=== PATIENT | male | born 1975 | race African-American/Black ===

== ENCOUNTER 2017-11-05 10:25 | Day surgery (SDC) | payer OTHER ==
[2017-11-05] MEDS ORDERED: NA CHLORIDE 0.9% 500 ML ONE (10:59)
[2017-11-05] MEDS ORDERED: PHENYLEPHRINE 10% OPTH 5ML ONE (10:59)
[2017-11-05] MEDS ORDERED: CYCLOPENTOLATE 1% OPTH 2 ML ONE (11:00)
[2017-11-05] MEDS ORDERED: CYCLOPENTOLATE 1% OPTH 2 ML OPTH ONE ×2 (11:10→11:17)
[2017-11-05] MEDS ORDERED: PHENYLEPHRINE 10% OPTH 5ML OPTH ONE ×2 (11:10→11:17)
[2017-11-05] MEDS ORDERED: DUOVISC 1 KIT OPTH ONE (11:31)
[2017-11-05] MEDS ORDERED: NS 0.9% VIAL 10 ML ONE (11:31)
[2017-11-05] MEDS ORDERED: EPINEPHRINE/PF 1 MG/ML AMP ONE (11:31)
[2017-11-05] MEDS ORDERED: BALANCED SALT IRRIG PLAIN 500 ML BTL IRR ONE (11:31)
[2017-11-05] MEDS ORDERED: MOXIFLOXACIN HCL 10 DROPS/ML **OR USE OPTH ONE (11:32)
[2017-11-05] MEDS: TETRACAINE HCL 0.5% 2ML OPTH ONE ×2 (11:48→12:30)
[2017-11-05] MEDS: BUPIVACAINE 0.25% PF 10 ML VIAL ONE ×2 (11:48→12:31)
[2017-11-05] MEDS: LIDOCAINE 2% MPF 5 ML VIAL ONE ×2 (11:49→12:31)
[2017-11-05] MEDS ORDERED: PROPOFOL 200 MG/20 ML VIAL IV ONE (12:45)
[2017-11-05] MEDS ORDERED: MIDAZOLAM HCL 2 MG/2 ML INJ ONE (12:46)
[2017-11-05] MEDS ORDERED: LIDOCAINE 1% MPF 5 ML VIAL ONE (12:46)
[2017-11-05] MEDS ORDERED: FLUMAZENIL 0.1 MG/ML (5 mL VIAL) IV ONE (13:09)
--- NOTE | 2017-11-05 13:30 | P.BOP ---
Preoperative diagnosis: Anterior and posterior subcapsular cataracts OD Postoperative diagnosis: Same Primary procedure: Phacoemulsification with IOL OD Estimated blood loss: None Anesthesia: Local (Subtnon's infusion with anesthesia for cataract surgery) Complications: None Implants: ZCB00 +20.0 Transferred to: Other (Day surgery) Condition: Good
--- NOTE | 2017-11-05 23:36 | OP ---
Date of Procedure: 11/05/2017 Surgeon: Mikaela Isbell MD Anesthesiologist: 1. Rodolfo Vallejo CRNA. 2. Buddy Green M.D. Preoperative Diagnosis: Anterior and posterior subcapsular cataract, right eye. Operation Performed: Phacoemulsification with intraocular lens implant, right eye. Anesthesia: Per cataract surgery. Complications: None. Description Of Procedure: In day surgery, the patient was prepped with Betadine and draped. A conju nctival incision was made in the inferior nasal quadrant with Meme scissors. A sub-Tenon block c onsisting of a 1:1 mixture of 2% Xylocaine and 0.25% bupivacaine was placed through the conjunctival incision with a blunt cannula. A Honan balloon was placed over the eye and the patient was transferr ed to the operating room. In the operating room the patient was prepped and draped in the usual sterile fashion for ophthalmic surgery. A lid speculum was placed in the right eye. Two paracentesis sites were made superiorly an d inferiorly in the limbal cornea. Viscoat was placed in the anterior chamber and a crescent blade w as used to make a corneal groove and tunnel, and a keratome was used to enter the anterior chamber. Provisc was placed in the anterior chamber and a 360 degree capsulotomy was performed with a cystitom e. The lens was hydrodissected with BSS and rotated freely. The lens was removed with a stop and ch op technique. A 7.20 phaco CDE was used to remove the lens. Residual cortex was removed with the ir rigation and aspiration. Provisc was placed in the capsular bag. A ZCB00 +20.0 lens was placed in t he capsular bag without complications. Irrigation and aspiration was used to remove residual viscoel astic. The paracentesis sites were hydrated with BSS. The wound and paracentesis sites were inspect ed and found to be watertight. Vigamox 0.07 cc was placed intracamerally at the end of the procedure . The eye was irrigated with balanced salt solution. The eye was patched with a soft cotton patch a nd Douglas metal shield. The patient was returned to day surgery in good condition. Comments: Discharge Instructions: Mr. Rodriguez is discharged to home in good condition and is to follow up lety Isbell in the morning. SHADL/JOHAN Voice ID: [id number] Report ID: [id number]
== END 2017-11-05 14:12 | disposition home or self-care (01) ==
LOC: OR 10:25
PROVIDERS: ATTEND Ophthalmology Retina Specialist
PROC: 08RJ3JZ Replacement of Right Lens with Synthetic Substitute, Percutaneous Approach (ICD-10-PCS; principal; 2017-11-05 11:00)
DX: H25.031 Anterior subcapsular polar age-related cataract, right eye (principal); H25.041 Posterior subcapsular polar age-related cataract, right eye; H25.11 Age-related nuclear cataract, right eye; I10 Essential (primary) hypertension; Z88.6 Allergy status to analgesic agent; Z86.010 Personal history of colon polyps; Z83.511 Family history of glaucoma; Z82.49 Family history of ischemic heart disease and other diseases of the circulatory system; Z80.9 Family history of malignant neoplasm, unspecified
CPT/HCPCS: J0171; J2250

== ENCOUNTER 2019-02-16 19:19 | Emergency (ER) | payer OTHER ==
--- OUTSIDE RECORDS SUMMARY | 2019-02-16 19:21 | XMS REPORT ---
:1975 [facility] Address [address] [place] [address] Care Team Providers Name Role Phone Unavailable Unavailable Unavailable Payers Payer Name Policy Type Policy Number Effective Date Expiration Date Problems This patient has no known problems. Allergies, Adverse Reactions, Alerts Allergy Allergy Status Severity Reaction(s) Onset Inactive Treating Comments Name Type Date Date Clinician No Known DA Active U 2018-02 Allergies 00:00:0 0 codeine DA Active SV 2018-02 00:00:0 0 Medications This patient has no known medications.
[2019-02-16] MEDS ORDERED: IBUPROFEN 400 MG TAB ONE (20:07)
--- NOTE | 2019-02-16 20:39 | EDPHYS ---
Physician Documentation [facility] Name: Suhail Rodriguez Age: 43 yrs Sex: Male : 1975 Arrival Date: 02/16/2019 Time: 19:21 Bed 13 Private MD: ED Physician Julio Perdomo HPI: 02/16 20:16 This 43 yrs old Black Male presents to ER via Ambulatory with complaints of Flu kb Symptoms. 20:16 The patient or guardian reports cough, that is intermittent, described as mild, with no kb sputum, flu symptoms, low-grade fever, myalgias. Onset: The symptoms/episode began/occurred 2 day(s) ago. Severity of symptoms: At their worst the symptoms were moderate, in the emergency department the symptoms are unchanged. Modifying factors: The symptoms are alleviated by nothing, the symptoms are aggravated by nothing. Associated signs and symptoms: Pertinent positives: fever, rhinorrhea, sore throat. The patient has not experienced similar symptoms in the past. The patient has not recently seen a physician. Historical: - Allergies: 19:36 No Known Allergies; aj1 - Home Meds: 19:36 None [Active]; aj1 - PMHx: 19:36 Diverticulitis; Migraines; aj1 - Immunization history:: Flu vaccine is up to date. - Social history:: Smoking status: Patient/guardian denies using tobacco. - Ebola Screening: : Patient denies travel to an Ebola-affected area in the 21 days before illness onset. ROS: 20:15 Neck: Negative for injury, pain, and swelling, Cardiovascular: Negative for chest pain, kb palpitations, and edema, Abdomen/GI: Negative for abdominal pain, nausea, vomiting, diarrhea, and constipation, Back: Negative for injury and pain, : Negative for injury, bleeding, discharge, and swelling, MS/Extremity: Negative for injury and deformity, Skin: Negative for injury, rash, and discoloration. 20:15 Constitutional: Positive for body aches, chills, fatigue, fever, malaise. 20:15 ENT: Positive for rhinorrhea, sinus congestion, sore throat. 20:15 Respiratory: Positive for 20:15 Neuro: Positive for headache. Exam: 20:15 Constitutional: This is a well developed, well nourished patient who is awake, alert, kb and in no acute distress. Head/Face: Normocephalic, atraumatic. ENT: Nares patent. No nasal discharge, no septal abnormalities noted. Tympanic membranes are normal and external auditory canals are clear. Oropharynx with no redness, swelling, or masses, exudates, or evidence of obstruction, uvula midline. Mucous membranes moist. Neck: Trachea midline, no thyromegaly or masses palpated, and no cervical lymphadenopathy. Supple, full range of motion without nuchal rigidity, or vertebral point tenderness. No Meningismus. Chest/axilla: Normal chest wall appearance and motion. Nontender with no deformity. No lesions are appreciated. Cardiovascular: Regular rate and rhythm with a normal S1 and S2. No gallops, murmurs, or rubs. Normal PMI, no JVD. No pulse deficits. Respiratory: Lungs have equal breath sounds bilaterally, clear to auscultation and percussion. No rales, rhonchi or wheezes noted. No increased work of breathing, no retractions or nasal flaring. Abdomen/GI: Soft, non-tender, with normal bowel sounds. No distension or tympany. No guarding or rebound. No evidence of tenderness throughout. Skin: Warm, dry with normal turgor. Normal color with no rashes, no lesions, and no evidence of cellulitis. MS/ Extremity: Pulses equal, no cyanosis. Neurovascular intact. Full, normal range of motion. Neuro: Awake and alert, GCS 15, oriented to person, place, time, and situation. Cranial nerves II-XII grossly intact. Motor strength 5/5 in all extremities. Sensory grossly intact. Cerebellar exam normal. Normal gait. Vital Signs: 19:36 BP 137 / 101; Pulse 79; Resp 18; Temp 97.6; Pulse Ox 96% on R/A; Weight 105.69 kg (R); aj1 Height 5 ft. 6 in. (167.64 cm) (R); Pain 7/10; 20:30 BP 136 / 92; Pulse 77; Resp 18; Pulse Ox 97% on R/A; wh 19:36 Body Mass Index 37.61 (105.69 kg, 167.64 cm) aj1 MDM: 19:41 Patient medically screened. kb 20:15 Data reviewed: vital signs, nurses notes. Data interpreted: Pulse oximetry: on room air kb is 96 %. Interpretation: normal. 20:16 Counseling: I had a detailed discussion with the patient and/or guardian regarding: the kb historical points, exam findings, and any diagnostic results supporting the discharge/admit diagnosis, lab results, the need for outpatient follow up, a family practitioner, to return to the emergency department if symptoms worsen or persist or if there are any questions or concerns that arise at home. 02/16 19:42 Order name: Flu; Complete Time: 20:33 kb 02/16 19:42 Order name: Strep; Complete Time: 20:24 kb 02/16 20:19 Order name: Throat Culture EDCO Administered Medications: 20:12 Drug: Motrin 800 mg Route: PO; aa1 20:50 Follow up: Response: No adverse reaction; Pain is decreased Disposition: 02/17 07:04 Co-signature as Attending Physician, Julio Perdomo MD. rn Disposition: 02/16/19 20:38 Discharged to Home. Impression: Acute upper respiratory infection, unspecified. - Condition is Stable. - Discharge Instructions: Upper Respiratory Infection, Adult, [id number], Viral Respiratory Infection, [id number]. - Medication Reconciliation Form, Thank You Letter, Antibiotic Education, Prescription Opioid Use form. - Follow up: Emergency Department; When: As needed; Reason: Worsening of condition. Follow up: Private Physician; When: 2 - 3 days; Reason: Recheck today's complaints, Continuance of care, Re-evaluation by your physician. Signatures: Dispatcher [employer] EDCO Faiza Montero, PRODUCTION PLANNER-C PRODUCTION PLANNER-Jessica Mc RN RN aj1 Faviola Tesfaye RN RN aa1 Julio Perdomo MD MD rn Hab[place], Winsy Corrections: (The following items were deleted from the chart) 02/16 20:51 20:38 02/16/2019 20:38 Discharged to Home. Impression: Acute upper respiratory wh infection, unspecified. Condition is Stable. Forms are Medication Reconciliation Form, Thank You Letter, Antibiotic Education, Prescription Opioid Use. Follow up: Emergency Department; When: As needed; Reason: Worsening of condition. Follow up: Private Physician; When: 2 - 3 days; Reason: Recheck today's complaints, Continuance of care, Re-evaluation by your physician. kb
--- NOTE | 2019-02-16 20:39 | ER ---
Nurse's Notes [facility] Name: Suhail Rodriguez Age: 43 yrs Sex: Male : 1975 Arrival Date: 02/16/2019 Time: 19:21 Bed 13 Private MD: Diagnosis: Acute upper respiratory infection, unspecified Presentation: 02/16 19:35 Presenting complaint: Patient states: cough, body aches, congestion, sore throat, and aj1 headache for the past 3 days. Transition of care: patient was not received from another setting of care. Onset of symptoms was 2019. Risk Assessment: Do you want to hurt yourself or someone else? Patient reports no desire to harm self or others. Initial Sepsis Screen: Does the patient meet any 2 criteria? No. Patient's initial sepsis screen is negative. Does the patient have a suspected source of infection? No. Patient's initial sepsis screen is negative. Care prior to arrival: None. 19:35 Method Of Arrival: Ambulatory aj1 19:35 Acuity: PREETI 4 aj1 Triage Assessment: 19:36 General: Appears in no apparent distress. comfortable, Behavior is calm, cooperative, aj1 appropriate for age. Pain: Complains of pain in forehead. EENT: Reports nasal congestion nasal discharge. Neuro: Level of Consciousness is awake, alert, obeys commands. Cardiovascular: Patient's skin is warm and dry. Respiratory: Airway is patent Respiratory effort is even, unlabored, Respiratory pattern is regular, symmetrical. Historical: - Allergies: 19:36 No Known Allergies; aj1 - Home Meds: 19:36 None [Active]; aj1 - PMHx: 19:36 Diverticulitis; Migraines; aj1 - Immunization history:: Flu vaccine is up to date. - Social history:: Smoking status: Patient/guardian denies using tobacco. - Ebola Screening: : Patient denies travel to an Ebola-affected area in the 21 days before illness onset. Screenin:57 Abuse screen: Denies threats or abuse. Denies injuries from another. Nutritional aa1 screening: No deficits noted. Tuberculosis screening: No symptoms or risk factors identified. Fall Risk None identified. Assessment: 19:57 General: Appears in no apparent distress. comfortable, Behavior is calm, cooperative, aa1 appropriate for age. Pain: Complains of pain in face and forehead Quality of pain is described as aching, throbbing, Is continuous. Neuro: Level of Consciousness is awake, alert, obeys commands, Oriented to person, place, time, situation, Moves all extremities. Full function Gait is steady, Speech is normal, Reports headache. Respiratory: Reports cough that is Airway is patent Respiratory effort is even, unlabored, Respiratory pattern is regular, symmetrical, Breath sounds are clear bilaterally. GI: No signs and/or symptoms were reported involving the gastrointestinal system. : No signs and/or symptoms were reported regarding the genitourinary system. EENT: Throat is clear Reports pain when swallowing. Derm: Skin is intact, is healthy with good turgor, Skin is pink, warm \T\ dry. Musculoskeletal: Circulation, motion, and sensation intact. Capillary refill < 3 seconds. 20:51 Reassessment: Patient appears in no apparent distress at this time. No changes from previously documented assessment. Patient and/or family updated on plan of care and expected duration. Pain level reassessed. Patient is alert, oriented x 3, equal unlabored respirations, skin warm/dry/pink. Vital Signs: 19:36 BP 137 / 101; Pulse 79; Resp 18; Temp 97.6; Pulse Ox 96% on R/A; Weight 105.69 kg (R); aj1 Height 5 ft. 6 in. (167.64 cm) (R); Pain 7/10; 20:30 BP 136 / 92; Pulse 77; Resp 18; Pulse Ox 97% on R/A; wh 19:36 Body Mass Index 37.61 (105.69 kg, 167.64 cm) [facility] ED Course: 19:21 Patient arrived in ED. jg7 19:22 Faiza Montero FNP-C [facility]. kb 19:22 Julio Perdomo MD is Attending Physician. kb 19:35 Triage completed. aj1 19:36 Arm band placed on Patient placed in an exam room. aj1 19:38 Faviola Tesfaye, JEANNETTE is Primary Nurse. aa1 19:57 Patient has correct armband on for positive identification. Bed in low position. Call aa1 light in reach. 19:57 Flu and/or RSV swab sent to lab. Strep swab sent to lab. aa1 20:49 No provider procedures requiring assistance completed. Patient did not have IV access wh during this emergency room visit. Administered Medications: 20:12 Drug: Motrin 800 mg Route: PO; aa1 20:50 Follow up: Response: No adverse reaction; Pain is decreased Outcome: 20:38 Discharge ordered by . kyle 20:49 Discharged to home ambulatory, with family. 20:49 Condition: stable 20:49 Discharge instructions given to patient, family, Instructed on discharge instructions, follow up and referral plans. POC URTI Demonstrated understanding of instructions, follow-up care, POC 20:51 Patient left the ED. Signatures: Faiza Montero, CAN CLOSING MACHINE TENDER-C CAN CLOSING MACHINE TENDER-Ckb Jessica Rosado, RN RN aj1 Faviola Tesfaye RN RN aa1 Floridalma Cannon Jessica jg7
[2019-02-16 21:12] VITALS: BP 136/92; O2SAT 97
[2019-02-16 21:14] VITALS: TEMP 97.6
== END 2019-02-16 20:51 | disposition home or self-care (01) ==
LOC: ER 19:19
DX: J06.9 Acute upper respiratory infection, unspecified (principal)
CPT/HCPCS: 87070; 87081; 87804; 99283

== ENCOUNTER 2019-08-11 10:52 | Emergency (ER) | payer OTHER ==
[2019-08-11] MEDS ORDERED: MORPHINE 4 MG/ML SYR ONE ×2 (11:34→15:22)
[2019-08-11] MEDS ORDERED: NA CHLORIDE 0.9% 1,000 ML ONE (11:34)
[2019-08-11] MEDS ORDERED: ONDANSETRON 4 MG/2 ML VIAL ONE (11:34)
[2019-08-11 11:47] LABS: Basophils % 0.2 % (0-1.3); Hematocrit 45.8 % (39.6-49.0); Lymphocytes % 34.4 % (15.3-44.8); MPV 9.8 fL (7.6-11.3); RBC Red Blood Cell Count 5.53 M/uL (4.33-5.43)
[2019-08-11 12:04] LABS: Albumin 3.9 g/dL (3.4-5.0); Bilirubin Direct 0.2 mg/dL (0-0.2); Bilirubin Total 0.5 mg/dL (0.2-1.0); Potassium 3.5 mmol/L (3.5-5.1); Protein, Total 8.1 g/dL (6.4-8.2)
--- NOTE | 2019-08-11 12:13 | RAD REPORT ---
EXAM DESCRIPTION: CTAbdomen Pelvis W Contrast - 08/11/2019 12:04 pm CLINICAL HISTORY: Abdominal pain. ABD PAIN COMPARISON: Abdomen Pelvis W Contrast dated 09/24/2015; CT ABD PELVIS W CONTRAST dated 01/12/2009; C T ABD PELVIS W CONTRAST dated 05/28/2008 TECHNIQUE: Biphasic CT imaging of the abdomen and pelvis was performed with 100 ml non-ionic IV cont rast. All CT scans are performed using dose optimization technique as appropriate and may include automated exposure control or mA/KV adjustment according to patient size. FINDINGS: Areas of atelectasis are present in both lung bases. The liver, spleen, pancreas, adrenal glands and kidneys are within normal limits. 24 mm left renal cy [address]. No bowel obstruction, free air, free fluid or abscess. Postsurgical changes are present sigmoid colon region. The appendix is normal. No evidence of significant lymphadenopathy. No suspicious bony findings. Postsurgical changes are present left inguinal region. IMPRESSION: No acute intra-abdominal or pelvic finding.
--- NOTE | 2019-08-11 13:17 | RAD REPORT ---
EXAM DESCRIPTION: RAD - Chest Single View - 08/11/2019 1:08 pm CLINICAL HISTORY: COUGH Chest pain. COMPARISON: CHEST PA AND LAT 2 VIEW dated 01/26/2009; CHEST SINGLE VIEW dated 09/22/2008; ABDOMEN ACU TE SERIES dated 05/28/2008 FINDINGS: Portable technique limits examination quality. The lungs are grossly clear. The heart is normal in size. No displaced fractures. IMPRESSION: No acute intrathoracic process suspected.
[2019-08-11 13:21] LABS: Blood Morphology Comment NOT SEEN (NOT SEEN); Platelet Estimate ADEQ; Urine White Blood Cell Casts OK
--- OUTSIDE RECORDS SUMMARY | 2019-08-11 13:22 | XMS REPORT | Continuity of Care Document ---
:1975 Author Organization [facility] t Address [address] [place] [address] Care Team Providers Name Role Phone Unavailable Unavailable Unavailable Payers Payer Name Policy Type Policy Number Effective Date Expiration Date S ource Problems This patient has no known problems. Allergies, Adverse Reactions, Alerts Allergy Allergy Status Severity Reaction(s) Onset Inactive Treating Comm ents Source Name Type Date Date Clinician No Known DA Active U [facility] 02[facility]08 [facility] Active SV 2018- [facility] 02-08 [place] [facility]: d 00 [facility] Medications This patient has no known medications. Procedures This patient has no known procedures. Results This patient has no known results.
[2019-08-11] MEDS ORDERED: levoFLOXacin 750 MG TAB ONE (15:21)
[2019-08-11] MEDS ORDERED: METRONIDAZOLE 500mg IVPB 500 MG/100 ML BAG IV ONE (15:22)
--- NOTE | 2019-08-11 15:58 | ER ---
Nurse's Notes [facility] Name: Suhail Rodriguez Age: 44 yrs Sex: Male : 1975 Arrival Date: 08/11/2019 Time: 10:59 Bed 17 Private MD: Diagnosis: Unspecified abdominal pain Presentation: 08/10 11:13 Chief complaint: Patient states: 3 DAYS FEVER, N/V AND BLQ PAIN. Coronavirus screen: bp Proceed with normal triage. Ebola Screen: No symptoms or risks identified at this time. Initial Sepsis Screen: Does the patient meet any 2 criteria? HR > 90 bpm. No. Patient's initial sepsis screen is negative. Does the patient have a suspected source of infection? No. Patient's initial sepsis screen is negative. Risk Assessment: Do you want to hurt yourself or someone else? Patient reports no desire to harm self or others. Onset of symptoms is unknown. 11:13 Method Of Arrival: Ambulatory bp 11:13 Acuity: PREETI 3 bp Triage Assessment: 11:15 General: Appears in no apparent distress. uncomfortable, Behavior is calm, cooperative, bp appropriate for age. Pain: Complains of pain in right lower quadrant and left lower quadrant. EENT: No deficits noted. Neuro: No deficits noted. Cardiovascular: No deficits noted. Respiratory: No deficits noted. GI: Reports lower abdominal pain, nausea, vomiting. : No signs and/or symptoms were reported regarding the genitourinary system. Derm: No deficits noted. Musculoskeletal: No deficits noted. Historical: - Allergies: 11:15 Codeine; bp - Home Meds: 11:15 phentermine 37.5 mg oral cap 1 cap once daily [Active]; bp - PMHx: 11:15 Diverticulitis; Migraines; bp - Immunization history:: Adult Immunizations up to date. - Social history:: Smoking status: Patient denies any tobacco usage or history of. Screenin:15 Abuse screen: Denies threats or abuse. Denies injuries from another. bp 11:15 Nutritional screening: No deficits noted. Tuberculosis screening: No symptoms or risk bp factors identified. Fall Risk None identified. Assessment: 11:15 General: SEE TRIAGE NOTE. bp 12:23 Reassessment: PT RETURNED FROM CT. ALL CURRENT ORDERS COMPLETED. dm5 14:18 Reassessment: IVF INFUSING, PT SLEEPING. NO ACUTE S/S AT THIS TIME. ca1 Vital Signs: 11:13 BP 123 / 86; Pulse 98; Resp 17; Temp 98; Pulse Ox 98% ; Weight 105.69 kg; Height 5 ft. bp 6 in. (167.64 cm); 12:23 BP 119 / 79; Pulse 83; Resp 16; Pulse Ox 98% ; dm5 13:30 BP 122 / 81; Pulse 79; Resp 16; Pulse Ox 97% ; ca1 15:59 BP 117 / 84; Pulse 85; Resp 16; Pulse Ox 100% ; bp 11:13 Body Mass Index 37.61 (105.69 kg, 167.64 cm) bp ED Course: 10:59 Patient arrived in ED. as 11:07 Jace Amezcua, JEANNETTE is Primary Nurse. bp 11:09 Art Adams NP is PHCP. pm1 11:09 Michael Parrish MD is Attending Physician. pm1 11:14 Triage completed. bp 11:15 Arm band placed on. bp 11:15 Patient has correct armband on for positive identification. Bed in low position. Call bp light in reach. Side rails up X2. 11:35 Inserted saline lock: 20 gauge in right forearm, using aseptic technique. Blood bp collected. 12:04 CT Abd/Pelvis - IV Contrast Only In Process Unspecified. EDMS 13:10 Chest Single View XRAY In Process Unspecified. EDMS Administered Medications: 11:35 Drug: NS 0.9% 1000 ml Route: IV; Rate: 1000 ml; Site: right forearm; bp 11:35 Drug: Zofran (Ondansetron) 4 mg Route: IVP; Site: right forearm; bp 14:57 Follow up: Response: No adverse reaction bp 11:35 Drug: morphine 4 mg Route: IVP; Site: right forearm; bp 14:57 Follow up: Response: Pain is decreased bp 15:00 Drug: Flagyl 500 mg Volume: 100 ml; Route: IVPB; Rate: 200 ml/hr; Infused Over: 30 bp mins; Site: right antecubital; 15:00 Drug: LevaQUIN 750 mg Route: PO; bp 15:00 Drug: morphine 2 mg Route: IVP; Site: right antecubital; bp 15:10 Drug: morphine 2 mg Route: IVP; Site: right antecubital; bp Outcome: 15:58 Discharge ordered by . pm1 16:46 Patient left the ED. bp Signatures: Dispatcher [employer] EDMS Radha Benedict, RN RN dm5 Whit Figueredo Patrick, STATION MANAGER STATION MANAGER pm1 Jace Amezcua RN RN bp Eloina Traylor RN RN ca1
--- NOTE | 2019-08-11 15:58 | EDPHYS ---
Physician Documentation [facility] Name: Suhail Rodriguez Age: 44 yrs Sex: Male : 1975 Arrival Date: 08/11/2019 Time: 10:59 Bed 17 Private MD: SP Physician Michael Parrish HPI: 08/10 11:29 This 44 yrs old Black Male presents to ER via Ambulatory with complaints of Abdominal pm1 Pain. 11:29 The patient presents with abdominal pain in the lower abdomen. Onset: The pm1 symptoms/episode began/occurred 2 day(s) ago. The symptoms do not radiate. Associated signs and symptoms: Pertinent positives: fever, Cough, Pertinent negatives: nausea, vomiting, and diarrhea, chest pain, constipation, fever, headache, shortness of breath. The symptoms are described as sharp. Modifying factors: The symptoms are alleviated by nothing, the symptoms are aggravated by nothing. Severity of pain: in the emergency department the pain is actually worse. The patient has experienced similar episodes in the past, today's symptoms are similar, to previous diverticulitis. The patient has not recently seen a physician, the patient's primary care provider is Dr. Romel APIPAH and Patricia SIERRA. Historical: - Allergies: 11:15 Codeine; bp - Home Meds: 11:15 phentermine 37.5 mg oral cap 1 cap once daily [Active]; bp - PMHx: 11:15 Diverticulitis; Migraines; bp - Immunization history:: Adult Immunizations up to date. - Social history:: Smoking status: Patient denies any tobacco usage or history of. ROS: 11:29 Constitutional: Negative for fever, chills, and weight loss, Cardiovascular: Negative pm1 for chest pain, palpitations, and edema. 11:29 Back: Negative for injury and pain, MS/Extremity: Negative for injury and deformity, Skin: Negative for injury, rash, and discoloration, Neuro: Negative for headache, weakness, numbness, tingling, and seizure. 11:29 Respiratory: Positive for cough, Negative for shortness of breath, sputum production, wheezing. 11:29 Abdomen/GI: Positive for abdominal pain, of the right lower quadrant and left lower quadrant, Negative for nausea, vomiting, and diarrhea. Exam: 11:29 Constitutional: This is a well developed, well nourished patient who is awake, alert, pm1 and in no acute distress. Head/Face: Normocephalic, atraumatic. Chest/axilla: Normal chest wall appearance and motion. Nontender with no deformity. No lesions are appreciated. 11:29 Back: No spinal tenderness. No costovertebral tenderness. Full range of motion. Skin: Warm, dry with normal turgor. Normal color with no rashes, no lesions, and no evidence of cellulitis. MS/ Extremity: Pulses equal, no cyanosis. Neurovascular intact. Full, normal range of motion. 11:29 Cardiovascular: Exam negative for acute changes, Rate: normal, Rhythm: regular, Pulses: no pulse deficits are appreciated. 11:29 Respiratory: Exam negative for acute changes, respiratory distress, shortness of breath. 11:29 Abdomen/GI: Inspection: abdomen appears normal, Palpation: soft, in all quadrants, mild abdominal tenderness, in the right lower quadrant and left lower quadrant, mass, is not appreciated, rebound tenderness, is not appreciated. 11:29 Neuro: Exam negative for acute changes, Orientation: is normal, Mentation: is normal, Motor: is normal, moves all fours. Vital Signs: 11:13 BP 123 / 86; Pulse 98; Resp 17; Temp 98; Pulse Ox 98% ; Weight 105.69 kg; Height 5 ft. bp 6 in. (167.64 cm); 12:23 BP 119 / 79; Pulse 83; Resp 16; Pulse Ox 98% ; dm5 13:30 BP 122 / 81; Pulse 79; Resp 16; Pulse Ox 97% ; ca1 15:59 BP 117 / 84; Pulse 85; Resp 16; Pulse Ox 100% ; bp 11:13 Body Mass Index 37.61 (105.69 kg, 167.64 cm) bp MDM: 11:11 Patient medically screened. ashley 12:37 Data reviewed: vital signs. Data interpreted: Pulse oximetry: on room air is 98 %. pm1 Interpretation: normal. 15:58 Counseling: I had a detailed discussion with the patient and/or guardian regarding: the pm1 historical points, exam findings, and any diagnostic results supporting the discharge/admit diagnosis, lab results, radiology results, the need for outpatient follow up, a family practitioner, a customer resource specialist, to return to the emergency department if symptoms worsen or persist or if there are any questions or concerns that arise at home. 08/10 11:18 Order name: Basic Metabolic Panel; Complete Time: 12:04 pm1 08/10 11:18 Order name: CBC with Diff pm1 08/10 11:18 Order name: Hepatic Function; Complete Time: 12:04 pm1 08/10 11:18 Order name: Lipase; Complete Time: 12:04 pm1 08/10 11:18 Order name: COVID-19 pm1 08/10 11:18 Order name: Flu; Complete Time: 15:57 pm1 08/10 11:18 Order name: Strep; Complete Time: 15:29 pm1 08/10 11:18 Order name: Chest Single View XRAY; Complete Time: 13:20 pm1 08/10 11:18 Order name: CT Abd/Pelvis - IV Contrast Only; Complete Time: 12:15 pm1 08/10 12:02 Order name: CREATININE WHOLE BLOOD; Complete Time: 12:04 EDMS 08/10 13:22 Order name: CBC Smear Scan; Complete Time: 13:35 EDMS 08/10 15:17 Order name: Throat Culture EDDE 08/10 11:18 Order name: IV Saline Lock; Complete Time: 11:50 pm1 08/10 11:18 Order name: Labs collected and sent; Complete Time: 11:50 pm1 08/10 11:18 Order name: Droplet/Contact Precautions; Complete Time: 11:20 pm1 08/10 11:18 Order name: O2 Per Protocol; Complete Time: 11:20 pm1 Administered Medications: 11:35 Drug: NS 0.9% 1000 ml Route: IV; Rate: 1000 ml; Site: right forearm; bp 11:35 Drug: Zofran (Ondansetron) 4 mg Route: IVP; Site: right forearm; bp 14:57 Follow up: Response: No adverse reaction bp 11:35 Drug: morphine 4 mg Route: IVP; Site: right forearm; bp 14:57 Follow up: Response: Pain is decreased bp 15:00 Drug: Flagyl 500 mg Volume: 100 ml; Route: IVPB; Rate: 200 ml/hr; Infused Over: 30 bp mins; Site: right antecubital; 15:00 Drug: LevaQUIN 750 mg Route: PO; bp 15:00 Drug: morphine 2 mg Route: IVP; Site: right antecubital; bp 15:10 Drug: morphine 2 mg Route: IVP; Site: right antecubital; bp Disposition: 20:56 Co-signature as Attending Physician, Michael RUELAS I agree with the assessment and [facility] plan of care. Disposition: 08/11/19 15:58 Discharged to Home. Impression: Unspecified abdominal pain. - Condition is Stable. - Discharge Instructions: Abdominal Pain, Adult. - Prescriptions for Flagyl 500 mg Oral Tablet - take 1 tablet by ORAL route every 6 hours for 10 days; 40 tablet. Levaquin 750 mg Oral Tablet - take 1 tablet by ORAL route once daily for 10 days; 10 tablet. Tramadol 50 mg Oral Tablet - take 1 tablet by ORAL route every 8 hours as needed; 12 tablet. - Medication Reconciliation Form, Thank You Letter, Antibiotic Education, Prescription Opioid Use form. - Follow up: Emergency Department; When: As needed; Reason: Worsening of condition. Follow up: Private Physician; When: 2 - 3 days; Reason: Recheck today's complaints, Continuance of care, Re-evaluation by your physician. - Problem is new. - Symptoms have improved. Signatures: Dispatcher [employer] EDMichael Rivas MD MD cha Marinas, Patrick OR ASSISTANT OR ASSISTANT pm1 Jace Amezcua, RN RN bp Corrections: (The following items were deleted from the chart) 16:46 15:58 08/11/2019 15:58 Discharged to Home. Impression: Unspecified abdominal pain. bp Condition is Stable. Forms are Medication Reconciliation Form, Thank You Letter, Antibiotic Education, Prescription Opioid Use. Follow up: Emergency Department; When: As needed; Reason: Worsening of condition. Follow up: Private Physician; When: 2 - 3 days; Reason: Recheck today's complaints, Continuance of care, Re-evaluation by your physician. Problem is new. Symptoms have improved. pm1
[2019-08-11 17:04] VITALS: TEMP 98
[2019-08-11 17:08] VITALS: BP 117/84; O2SAT 100
== END 2019-08-11 16:46 | disposition home or self-care (01) ==
LOC: ER 10:52
DX: R10.30 Lower abdominal pain, unspecified (principal); Z20.828 Contact with and (suspected) exposure to other viral communicable diseases; Z88.5 Allergy status to narcotic agent
CPT/HCPCS: 87070; 85025; 80048; 36415; 82565; 80076; 87081; 83690; 87804 ×2; 74177; 71045; 99284; U0001; Q9967; J7030; J2405; 96374; 96375